=== PATIENT | male | born 1995 ===

== ENCOUNTER 2023-06-23 18:03 | Emergency (ER) | payer SELFPAY ==
[2023-06-23 18:10] VITALS: BP 146/85; PULSE 85; RESP 18; TEMP 36.8; O2SAT 98
--- NOTE | 2023-06-23 18:26 | PC.NURSE ---
Pt approached triage desk and requested wait time, pt explained unable to give out wait times. Pt stated he would no longer like wait. Pt left ED.
[2023-06-23 19:03] LABS: Influenza A QL RT-PCR Negative (Negative); Influenza B QL RT-PCR Negative (Negative); RSV RNA, RT-PCR Positive (Negative); SARS-CoV-2 RNA PCR Negative (Negative)
== END 2023-06-23 18:34 | disposition left against medical advice (07) ==
LOC: ANHED 18:32
PROVIDERS: Emergency Provider Emergency Medicine
DX: R05.9 Cough, unspecified (principal); Z20.822 Contact with and (suspected) exposure to COVID-19
CPT/HCPCS: 87637; 99199

== ENCOUNTER 2023-06-23 19:14 | Emergency (ER) | payer SELFPAY ==
[2023-06-23 19:34] VITALS: BP 146/80; PULSE 85; RESP 18; TEMP 36.8; O2SAT 98
== END 2023-06-23 22:04 | disposition left against medical advice (07) ==
LOC: ANHED 20:48
DX: R05.9 Cough, unspecified (principal)
CPT/HCPCS: 99199

== ENCOUNTER 2023-06-24 11:15 | Emergency (ER) | payer SELFPAY ==
--- NOTE | ~2023-06-24 | XR_ITS ---
EXAMINATION: XR chest 2V DATE: 06/24/2023 12:45 INDICATION: Cough and shortness of breath TECHNIQUE: PA and lateral views of the chest are obtained. COMPARISON: None available FINDINGS: The lungs are free of acute opacities. No pleural effusion or pneumothorax. The cardiomedia stinal silhouette is normal. The visualized bones and soft tissues are unremarkable. IMPRESSION: 1. No acute cardiopulmonary abnormality. Reviewed, dictated and finalized at location A.
[2023-06-24 11:38] VITALS: BP 148/79; PULSE 93; RESP 16; TEMP 36.4; O2SAT 100
[2023-06-24 12:46] VITALS: PULSE 86; RESP 14; O2SAT 100
--- NOTE | 2023-06-24 13:07 | ED.GENADULT ---
HPI - General Adult General Chief complaint: Upper Respiratory Infection Stated complaint: congestion/left before being seen yesterday Time Seen by Provider: 06/24/23 12:19 History of Present Illness HPI narrative: 28-year-old male presented the ED for evaluation of cough congestion lightheaded dizziness. Patient states that he feels that his cough and congestion has improved his primary complaint at this time is dizziness and lightheadedness with some intermittent vomiting. Patient reports he did drink alcohol last night and states he believes this is the cause for his nausea vomiting and lightheadedness. Patient also reports associated headache. Related Data Allergies Allergy/AdvReac Type Severity Reaction Status Date / Time No Known Allergies Allergy Verified 06/24/23 11:39 Review of Systems Review of Systems: All systems reviewed & are unremarkable except as noted in HPI and below Exam Narrative: APPEARANCE: Well appearing, no pain, no distress, well-nourished. HEAD: normocephalic, atraumatic. EYES: PERRLA/EOMI, conjunctivae clear. NOSE: Normal no drainage NECK: Supple. No adenopathy, no masses. RESPIRATORY: Airway patent, respirations nonlabored. Clear to auscultation bilaterally, no rales, rhonchi, wheezing. CARDIOVASCULAR: Regular rate and rhythm without murmurs rubs or gallops. ABDOMINAL: Soft, nontender, nondistended, normal bowel sounds MUSCULOSKELETAL: Moves all extremities. Strength/ROM intact, No edema, No calf tenderness. NEURO: Alert. Cranial nerves II through XII intact. Grossly intact SKIN: Warm, dry. Normal Color Course Course Emergency Course: 28 male presented ED for evaluation of multiple complaints including lightheaded dizziness cough and congestion. Chest x-ray was ordered that shows no acute cardiopulmonary abnormality. Patient was treated with IV fluids IV Zofran and Toradol. Patient did feel improved with treatment. Patient was afebrile with no leukocytosis and a stable hemoglobin. Patient had no significant abnormalities on his CMP. Patient was positive for RSV. Patient was admitted on the results of his work-up and was encouraged of close follow-up with his primary care physician. Vital Signs Vital signs: Vital Signs Temperature 97.6 F 06/24/23 11:38 Pulse Rate 93 06/24/23 11:38 Respiratory Rate 16 06/24/23 11:38 Blood Pressure 148/79 H 06/24/23 11:38 Pulse Oximetry 100 09/04/23 11:38 Temperature 98.0 F 06/24/23 14:24 Pulse Rate 86 06/24/23 14:24 Respiratory Rate 18 06/24/23 14:24 Blood Pressure 115/80 06/24/23 14:24 Pulse Oximetry 100 06/24/23 14:24 Oxygen Delivery Room Air 06/24/23 13:20 Medical Decision Making Differential Diagnosis Differential Diagnosis: Viral etiology, dehydration, headache Vital Signs Vital Signs: Vital Signs Temperature 97.6 F 06/24/23 11:38 Pulse Rate 93 06/24/23 11:38 Respiratory Rate 16 06/24/23 11:38 Blood Pressure 148/79 H 06/24/23 11:38 Pulse Oximetry 100 06/24/23 11:38 Temperature 98.0 F 06/24/23 14:24 Pulse Rate 86 06/24/23 14:24 Respiratory Rate 18 06/24/23 14:24 Blood Pressure 115/80 06/24/23 14:24 Pulse Oximetry 100 06/24/23 14:24 Oxygen Delivery Room Air 06/24/23 13:20 Lab Data 06/24/23 13:15 06/24/23 13:14 Labs: Lab Results 06/24/23 06/24/23 06/24/23 Range/Units 12:38 13:14 13:15 WBC 10.6 H (4.5-10.0) K/mm3 RBC 5.64 (4.6-6.20) M/mm3 Hgb 15.9 (14.0-18.0) g/dL Hct 48.1 (42.0-52.0) % MCV 85.3 (80-100) fl MCH 28.2 (26-34) pg MCHC 33.1 (32-36) g/dl RDW 13.1 (11.5-14.5) % Plt Count 310 (150-375) k/mm3 MPV 10.0 (7.4-10.4) fl Immature Gran % (Auto) 0.4 (0-0.5) % Neut % (Auto) 77.9 H (45.5-73.1) % Lymph % (Auto) 16.0 L (18.3-44.2) % Dukes % (Auto) 4.5 (2.6-8.5) % Eos % (Auto) 0.7 (0-4.4) % Baso % (Auto) 0.5 (0.2-1.2) % Lymph # (A
[2023-06-24 13:08] VITALS: BP 126/80; PULSE 90; RESP 23; O2SAT 100
[2023-06-24 13:16] VITALS: BP 147/94; PULSE 94; RESP 21
[2023-06-24 13:20] LABS: Basophils Absolute Auto 0.1 K/mm3 (0.0-0.1); Basophils Percent Auto 0.5 % (0.2-1.2); Eosinophils Absolute Auto 0.1 K/mm3 (0-0.3); Eosinophils Percent Auto 0.7 % (0-4.4); Hematocrit 48.1 % (42.0-52.0); Hemoglobin 15.9 g/dL (14.0-18.0); Immature Granulocyte Absolute 0.04 K/mm3 (0.00-0.031); Immature Granulocyte Percent A 0.4 % (0-0.5); Mean Corpuscular HGB Conc 33.1 g/dl (32-36); Mean Corpuscular Hemoglobin 28.2 pg (26-34); Mean Corpuscular Volume 85.3 fl (80-100); Monocytes Absolute Auto 0.5 K/mm3 (0.1-0.6); Monocytes Percent Auto 4.5 % (2.6-8.5); Neutrophils Absolute Auto 8.3 K/mm3 (1.3-6.7); Neutrophils Percent Auto 77.9 % (45.5-73.1); Platelet Count Result 310 k/mm3 (150-375); Red Blood Count 5.64 M/mm3 (4.6-6.20); Red Cell Distribution Width 13.1 % (11.5-14.5); White Blood Count 10.6 K/mm3 (4.5-10.0)
[2023-06-24] MEDS: SODIUM CHLORIDE 0.9% IV 1,000 ML 999 ML IV CONT (13:22)
[2023-06-24 13:26] LABS: Influenza A QL RT-PCR Negative (Negative); Influenza B QL RT-PCR Negative (Negative); RSV RNA, RT-PCR Positive (Negative); SARS-CoV-2 RNA PCR Negative (Negative)
[2023-06-24] MEDS: ONDANSETRON INJ 4 MG/2 ML VIAL IV PUSH (13:27)
[2023-06-24 13:30] LABS: Alanine Aminotransferase 61 U/L (6-50); Albumin Level 4.6 g/dL (3.5-5.1); Alkaline Phosphatase 75 U/L (38-126); Anion Gap 10 mmol/L (8-16); Aspartate Amino Transferase 53 U/L (17-59); Bilirubin,Total 0.7 mg/dL (0.2-1.3); Blood Urea Nitrogen 17 mg/dL (9-20); Calcium 9.2 mg/dL (8.4-10.2); Carbon Dioxide 26 mmol/L (22-30); Chloride 100 mmol/L (98-107); Estimated CRCL calculation 156 ml/min; Estimated Glomerular Filt Rate > 60; Glucose 226 mg/dL (65-110); Potassium 4.2 mmol/L (3.4-5.0); Sodium 136 mmol/L (137-145)
[2023-06-24] MEDS: KETOROLAC 15 MG/ML VIAL (*BKC) IV PUSH (13:35)
--- NOTE | 2023-06-24 13:54 | PC.NURSE ---
1330- Pt reports he drank too much last night. States drank an unknown amount of Vodka & whiskey, denies drug use. Dr. Wade informed
[2023-06-24 14:16] VITALS: BP 113/71; PULSE 89; RESP 17; TEMP 36.7; O2SAT 100
[2023-06-24 14:24] VITALS: BP 115/80; PULSE 86; RESP 18; TEMP 36.7; O2SAT 100
== END 2023-06-24 14:44 | disposition home or self-care (01) ==
PROVIDERS: Emergency Provider Emergency Medicine
DX: E86.0 Dehydration (principal); B97.4 Respiratory syncytial virus as the cause of diseases classified elsewhere
CPT/HCPCS: 36415; 71046; 80053; 85025; 87637; 96361; 96374; 96375; 99284; J1885; J2405; J7030

== ENCOUNTER 2023-08-25 10:46 | Emergency (ER) | payer OTHER, SELFPAY ==
--- NOTE | ~2023-08-25 | CT_ITS ---
EXAMINATION: CT brain wo con INDICATION: Left arm and leg tingling COMPARISON: None TECHNIQUE: Standard unenhanced head CT. The dose-length product (DLP) was 605.33 mGy-cm. The mA was a djusted according to patient size. Iterative reconstruction technique was employed. FINDINGS: No intracranial hemorrhage, acute infarction, or abnormal mass lesion. The ventricles are n ormal. No abnormal mass effect or midline shift. The ahumada-white matter differentiation is normal. The basal cisterns are patent. The orbits are normal. The paranasal sinuses, mastoids and calvarium are normal. IMPRESSION: 1. No acute intracranial abnormality. Reviewed, dictated and finalized at location F. CLEANER
--- NOTE | ~2023-08-25 | XR_ITS ---
EXAMINATION: XR chest 2V DATE: 08/25/2023 12:50 INDICATION: Chest pain TECHNIQUE: PA and lateral views of the chest are obtained. COMPARISON: 06/24/2023 FINDINGS: The lungs are free of acute opacities. No pleural effusion or pneumothorax. The cardiomedia stinal silhouette is normal. The visualized bones and soft tissues are unremarkable. IMPRESSION: 1. No acute cardiopulmonary abnormality. Reviewed, dictated and finalized at location F. [employer]EDGE
[2023-08-25 11:14] VITALS: BP 149/95; PULSE 89; RESP 18; TEMP 36.2; O2SAT 100
--- NOTE | 2023-08-25 12:33 | ECG_ITS ---
Measurements Intervals [place] Rate: 70 P: 36 FL: 129 QRS: 32 QRSD: 109 T: 20 QT: 373 QTc: 404 Interpretive Statements SINUS RHYTHM ST ELEVATION IN ANTEROLATERAL LEADS, PROBABLY EARLY REPOLARIZATION BORDERLINE ECG NO PREVIOUS ECG AVAILABLE FOR COMPARISON Electronically Signed On 08-25-2023 16:41:25 [employer]ARD ASSISTANT by Alen Pond D.O.
[2023-08-25 13:04] LABS: Basophils Absolute Auto 0.1 K/mm3 (0.0-0.1); Basophils Percent Auto 0.6 % (0.2-1.2); Eosinophils Absolute Auto 0.1 K/mm3 (0-0.3); Hematocrit 46.4 % (42.0-52.0); Hemoglobin 15.6 g/dL (14.0-18.0); Immature Granulocyte Absolute 0.03 K/mm3 (0.00-0.031); Immature Granulocyte Percent A 0.3 % (0-0.5); Lymphocytes Absolute Auto 2.75 K/mm3 (0.9-3.2); Lymphocytes Percent Auto 26.6 % (18.3-44.2); Mean Corpuscular HGB Conc 33.6 g/dl (32-36); Mean Corpuscular Hemoglobin 28.7 pg (26-34); Mean Corpuscular Volume 85.3 fl (80-100); Mean Platelet Volume 10.2 fl (7.4-10.4); Monocytes Absolute Auto 0.8 K/mm3 (0.1-0.6); Monocytes Percent Auto 7.4 % (2.6-8.5); Neutrophils Absolute Auto 6.6 K/mm3 (1.3-6.7); Neutrophils Percent Auto 64.1 % (45.5-73.1); Platelet Count Result 301 k/mm3 (150-375); Red Blood Count 5.44 M/mm3 (4.6-6.20); Red Cell Distribution Width 12.9 % (11.5-14.5); White Blood Count 10.4 K/mm3 (4.5-10.0)
[2023-08-25 13:14] LABS: Prothrombin Time 13.7 Seconds (11.1-14.7)
[2023-08-25 13:15] LABS: Partial Thromboplastin Time 28.9 SECONDS (22.3-36.8)
[2023-08-25 13:17] LABS: Alanine Aminotransferase 63 U/L (6-50); Albumin Level 4.4 g/dL (3.5-5.1); Alkaline Phosphatase 64 U/L (38-126); Anion Gap 8 mmol/L (8-16); Aspartate Amino Transferase 42 U/L (17-59); Bilirubin,Total 0.9 mg/dL (0.2-1.3); Blood Urea Nitrogen 14 mg/dL (9-20); Calcium 9.7 mg/dL (8.4-10.2); Carbon Dioxide 25 mmol/L (22-30); Chloride 100 mmol/L (98-107); Estimated CRCL calculation 161 ml/min; Estimated Glomerular Filt Rate > 60; Glucose 251 mg/dL (65-110); Potassium 3.8 mmol/L (3.4-5.0); Sodium 133 mmol/L (137-145)
[2023-08-25 13:21] LABS: D Dimer 0.32 ug/mL (<0.48)
[2023-08-25 13:28] LABS: Troponin I < 0.012 ng/mL (0.000-0.034)
--- NOTE | 2023-08-25 13:30 | ED.GENADULT ---
HPI - General Adult General Chief complaint: Unspecified Stated complaint: Tingling in head and hand, flu shot recently Time Seen by Provider: 08/25/23 12:08 Source: patient, family and RN notes reviewed Mode of arrival: ambulatory Limitations: no limitations and other (patient speaks bots[place] but this is not primary language. I offered tire trucker and patient declined) History of Present Illness HPI narrative: This is a 28 year old male with history of DM who presents for evaluation of left side tingling. Patient states he received flu vaccination and he was started on metformin 2 days ago. Yesterday he noticed tingling to left side of his body yesterday. He states that it seemed to occur with laying down. Today he reports tingling that has been constant all day. He reports tingling is mainly in his left hand. He denies weakness, headache, slurred speech, dizziness or vision changes. He reports left nonradiating chest pain for 3 months. He also reports he thinks he has left shoulder pain today but he is unsure. His family at bedside states patient has gotten himself worked up from his new diagnosis of DM. He has started dieting and he is anxious. Related Data Allergies Allergy/AdvReac Type Severity Reaction Status Date / Time No Known Allergies Allergy Verified 06/24/23 11:39 Review of Systems Constitutional: Constitutional: Denies weakness Cardiovascular: Cardiovascular: Reports chest pain (for several months), Denies syncope, Denies rapid heart rate, Denies irregular heart rhythm, Denies leg edema and Denies dyspnea Respiratory: Respiratory: Denies chest congestion, Denies hemoptysis, Denies excessive phlegm production and Denies dyspnea Gastrointestinal: Gastrointestinal: Denies abdominal pain, Denies hematochezia, Denies diarrhea, Reports nausea and Denies vomiting Genitourinary: Genitourinary: Denies hematuria, Denies dysuria, Denies penile discharge and Denies testicular pain Musculoskeletal: Musculoskeletal: Denies joint swelling, Denies loss of height and Denies muscle weakness Neurologic: Denies syncope, Denies focal weakness and Denies weakness PMFSH Past Medical History Medical History (Updated 08/25/23 @ 15:00 by Joy Solano MD) Diabetes mellitus Surgical History Surgical History (Updated 08/25/23 @ 13:32 by Joy Solano MD) History of appendectomy Social History Social History (Updated 08/25/23 @ 13:32 by Joy Solano MD) Smoking status: Never smoker Alcohol intake: current Exam Narrative: GENERAL: Well-appearing, well-nourished, and in no acute distress. HEAD: Normocephalic, atraumatic EYES: PERRLA and EOMI, conjunctiva clear without discharge EARS: TM's clear bilaterally without erythema or dullness NOSE: Nares clear, no rhinorrhea or epistaxis THROAT:Mucous membranes moist, Oropharynx normal without erythema, exudate, peritonsillar swelling or fluctuance NECK: Supple, without lymphadenopathy or mass RESPIRATORY: No respiratory distress, Airway patent, Respirations non-labored, Clear to auscultation without rales, rhonchi or wheeze HEART: Regular rate and rhythm. No murmur heard. Normal peripheral pulses. ABDOMEN: Soft, nontender, nondistended, normal active bowel sounds. No masses. No rebound or guarding, No organomegaly. EXTREMITIES: No edema, normal strength with full range of motion. SKIN: Warm, dry, normal color without rash NEURO: Alert and oriented x3. CN 2-12 grossly intact. No focal deficits. PSYCH: Normal mood and affect. Neuro: General: patient oriented x3 Cranial nerves: Yes CN's II-XII intact bilaterally and Yes Equal, round and reactive pupils present Speech: normal speech Motor exam (neuro): 5/5 motor strength present throughout, Pronator motor function not present and No tremor noted Sensory Exam: normal sensation Coordination: [id number] test normal and [id number] test normal Course Reevaluation(s) Reevaluation #1: Patient is
[2023-08-25 13:37] LABS: Appearance Urine Clear (Clear); Bilirubin Urine Negative (Negative); Blood Urine Negative (Negative); Color Urine Yellow (Yellow); Glucose Urine UA 3+ mg/dL (Negative); Ketones Urine Negative (Negative); Leukocyte Esterase Ur Negative LEU/UL (Negative); Nitrate Urine Negative (Negative); Protein Urine Negative (Negative); Specific Grav Ur 1.021 (1.001-1.035); Urobilinogen Urine 0.2 mg/dL (<2.0); pH Urine 6.5 (5.0-9.0)
--- NOTE | 2023-08-25 13:42 | PC.NURSE ---
pt requested to hold off on an IV and fluids until all results come back. educated pt on use of fluids. no further orders at this time
[2023-08-25 13:45] LABS: Add Urine Microscopic? NO
[2023-08-25] MEDS: SODIUM CHLORIDE 0.9% IV 1,000 ML 999 ML IV CONT (14:10)
[2023-08-25 14:11] VITALS: BP 129/78; PULSE 67; RESP 18; O2SAT 100
== END 2023-08-25 15:15 | disposition home or self-care (01) ==
PROVIDERS: Emergency Provider General Practice
DX: R20.2 Paresthesia of skin (principal); E11.65 Type 2 diabetes mellitus with hyperglycemia; E86.0 Dehydration; E11.9 Type 2 diabetes mellitus without complications; Z79.84 Long term (current) use of oral hypoglycemic drugs
CPT/HCPCS: 36415; 70450; 71046; 80053; 81003; 83735; 84484; 85025; 85380; 85610; 85730; 93005; 96360; 99284; J7030